=== PATIENT | female | born 1985 | race Caucasian/White ===

== ENCOUNTER 2021-07-05 09:46 | Emergency (ER) | payer OTHER ==
[~2021-07-05 09:46] MED LIST: ATARAX25 MG PO; FIORICET1 EACH PO; FIORINAL 50-321 EACH PO; FLOMAX0.4 MG PO; INDERAL LA160 MG PO; LAMICTAL100 MG PO; LORCET PLUS 7.1 EACH PO; NAPROXEN500 MG PO; PERCOCET 5-3251 EACH PO; PHENERGAN25 M1 PO; PREVACID30 M1 PO; PROPRANOLOL HCL60 M2 PO; ZOFRAN4 MG PO
[2021-07-05] MEDS ORDERED: INDOCIN25 MG PO (10:28)
[2021-07-05] MEDS ORDERED: ANUCORT-HC25 MG PR (10:28)
== END 2021-07-05 10:34 | disposition home or self-care (01) ==
LOC: FER 09:46
DX: K64.5 Perianal venous thrombosis (principal); F17.210 Nicotine dependence, cigarettes, uncomplicated; Z88.1 Allergy status to other antibiotic agents; Z88.2 Allergy status to sulfonamides